=== PATIENT | female | born 1995 | race Caucasian/White ===

== ENCOUNTER 2022-12-17 14:04 | Emergency (ER) | payer OTHER ==
[~2022-12-17] VITALS: Ht 175.3 cm; Wt 63.0 kg
[2022-12-17] MEDS ORDERED: HYDROcodone-ACET 10/325MG TAB PO ONE (15:30)
[2022-12-17] MEDS ORDERED: IBU600T PO (15:43)
[2022-12-17 15:53] LABS: Urine Bacteria None Seen /hpf (None Seen); Urine WBC None Seen /hpf (0 - 5)
[2022-12-17] MEDS ORDERED: CEPH-510 PO (16:37)
[2022-12-17 16:38] VITALS: BP 123/80
[2022-12-17 18:16] LABS: Urine Specific Gravity 1.015 (1.001-1.035)
[2022-12-17 18:17] LABS: Urine Blood Normal /uL (Negative)
== END 2022-12-17 17:35 | disposition home or self-care (01) ==
LOC: ER 14:04
DX: R51.9 Headache, unspecified (principal); F41.9 Anxiety disorder, unspecified; F90.9 Attention-deficit hyperactivity disorder, unspecified type; F12.10 Cannabis abuse, uncomplicated
CPT/HCPCS: 70450; 81001